=== PATIENT | female | born 1985 | race Two or more races ===

== ENCOUNTER 2017-09-28 21:58 | Emergency (ER) | payer OTHER ==
[2017-09-28] MEDS ORDERED: Haloperidol Lactate 5 MG/ML SDV IM ONE (22:27)
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
== END 2017-09-29 07:17 | disposition home or self-care (01) ==
LOC: JP.ED 21:58
DX: F15.10 Other stimulant abuse, uncomplicated (principal); Z88.5 Allergy status to narcotic agent
CPT/HCPCS: 96372; 99284; J1630; 99283